=== PATIENT | male | born 1945 | race Caucasian/White ===

== ENCOUNTER → 2017-11-17 18:11 | Outpatient (CLI) | payer MEDICARE | END | disposition home or self-care (01) | LOC: D.LABREF 18:11 | DX: M17.12 Unilateral primary osteoarthritis, left knee (principal); Z11.8 Encounter for screening for other infectious and parasitic diseases ==

== ENCOUNTER 2018-01-05 10:00 | Inpatient (IN) | payer MEDICARE, BC ==
[~2018-01-05] VITALS: Ht 167.6 cm; Wt 102.5 kg
--- NOTE | ~2018-01-05 | OP ---
PATIENT NAME: FROY KOCH MEDICAL RECORD: [id number] :47 LOCATION:[id number] ADMISSION DATE:01/10/18 SURGEON: IMER PACHECO MD DATE OF OPERATION: 01/10/2018 PREOPERATIVE DIAGNOSIS: Painful hemiarthroplasty, left knee. POSTOPERATIVE DIAGNOSIS: Painful hemiarthroplasty, left knee. PROCEDURE: Revision left total knee arthroplasty. SURGEON: Imer Pacheco MD ANESTHESIA: General. INTRAOPERATIVE COMPLICATIONS: None. SUMMARY OF PATHOLOGIC FINDINGS: The patient had a very severe synovitis pigmented. This will be sent for specimen, although it does not look like a true pigmented nodular synovitis. At any rate, the inside of the knee was very irritated and the patient had developed lateral compartment arthritis as well. IMPLANTS USED: Alderson triathlon total knee arthroplasty, size 6 distal femur, size 16 polyethylene insert, size 5 tibial baseplate, and size 33 patellar component, all cemented. OPERATIVE SUMMARY IN DETAIL: After obtaining the appropriate preoperative orthopedic surgery consent as well as anesthetic consultation, evaluation, and clearance, the patient was brought to the operating room and placed on the operating table in supine position. After general laryngeal mask airway was administered, tourniquet was placed on the proximal aspect of the left lower extremity. Left lower extremity was then prepped and draped in routine sterile fashion. The leg was elevated and exsanguinated. Tourniquet was inflated to 350 mmHg. Previously utilized incision was taken down through the midline approach for paramedian arthrotomy. The patella was eventually everted and distal femur and the medial components were exposed. The polyethylene spacer was taken out. This was followed by flexible osteotomes chiselling underneath the distal femoral component, which was removed with absolutely no bone loss. Distal intramedullary guide hole was created for distal intramedullary guided cuts, intramedullary distal cut was made and attention was turned to the tibia. Tibia was exposed in its entirety. Intramedullary guide hole was created. The first cut was made while leaving the hemiarthroplasty baseplate in place. Given to the relatively light amount of bone loss, I did not feel like it needed to have a medial augmentation. Secondary cut was made just underneath the tibial component on the medial side. Having completed this, final measurements were taken. Chamfer cuts were made on the distal femur. Trials were put into place, taken through range of motion and found to be stable in all planes. Having completed this, trials were removed. Final distal femoral and proximal tibial preparations were made. This was followed by excision of the arthritic surface of the patella for a size 33 Endobutton. Final patellar preparations were then followed by complete irrigation of the knee cavity. The knee cavity was irrigated. Bone ends were dried. Final components were cemented into place. All excess cement was removed before the cement was allowed to harden. After the cement was allowed to harden, the knee was taken through range of motion and found to be stable in all planes with good patellar tracking. Paramedian OPERATIVE REPORT [id number] FROY KOCH arthrotomy was closed with #2 Ethibond followed by #1 Vicryl, 2-0 Vicryl and skin gino. Sterile dressings were applied. The patient was awakened and taken to recovery room in stable condition. All final needle and sponge counts were correct. TRANSINT:[id number] Voice Confirmation ID: [id number] DOCUMENT ID: [id number] JUNIOR REHMAN, IMER MCGUIRE at 1606 CC: [id number] DICTATION DATE: 01/10/18 1010 TELEMARKETING MANAGER: 01/10/18 1053 [facility] [address] [place] [address]
[2018-01-05] MEDS ORDERED: COREG12.5 MG PO (10:33)
[2018-01-05] MEDS ORDERED: LOTREL 10-40 M1 EACH PO (10:35)
[2018-01-05] MEDS ORDERED: PROZAC20 MG PO (10:35)
[2018-01-05] MEDS ORDERED: ZOCOR20 MG PO (10:36)
[2018-01-05 11:29] LABS: BASOPHILS 0.3 % (0-2); HEMATOCRIT 42.2 % (42.0-54.0); HEMOGLOBIN 14.7 g/dL (13.5-17.5); LYMPHOCYTES 20.7 % (15-50); MCH 32.5 pg (26.0-34.0); MCHC 34.8 g/dL (31.0-37.0); MCV 93.2 fL (80.0-100.0); MEAN PLATELET VOLUME 9.5 fL (7.4-10.4); MONOCYTES 7.3 % (2-11); NEUTROPHILS 68.7 % (40-80); PLATELET COUNT 250 10x3/uL (130-400); RBC 4.53 10x6/uL (4.20-6.10); RDW 12.2 % (11.5-14.5); WBC 6.3 10x3/uL (4.8-10.8)
[2018-01-05 11:45] LABS: APTT 29.4 SECONDS (22.8-39.4); INR 1.02 (0.85-1.17)
[2018-01-05 11:53] LABS: CALC OSMOLALITY 278 mosm/kg (275-300); CALCIUM 8.9 mg/dL (8.5-10.1); CHLORIDE - SERUM 103 mmol/L (98-107); CREATININE - SERUM 0.8 mg/dL (0.6-1.3); GLUCOSE 98 mg/dL (74-106); POTASSIUM - SERUM 4.7 mmol/L (3.5-5.1); SODIUM 138 mmol/L (136-145); UREA NITROGEN 20 mg/dL (7-18); eGFR NON AFRICAN AMERICAN > 90 mL/min (90-120)
[2018-01-05 12:02] LABS: APPEARANCE CLEAR (CLEAR); BILIRUBIN NEGATIVE (NEGATIVE); COLOR YELLOW (YELLOW); GLUCOSE NEGATIVE (NEGATIVE); KETONE NEGATIVE (NEGATIVE); NITRITE NEGATIVE (NEGATIVE); PROTEIN NEGATIVE (NEGATIVE); SPECIFIC GRAVITY 1.005 (1.005-1.020); UROBILINOGEN NORMAL (NORMAL)
[2018-01-10 07:16] VITALS: BP 128/75; BMI 36.8
[2018-01-10 12:16] VITALS: BP 148/87; BMI 36.5
[2018-01-10 16:41] VITALS: BP 112/64; BP 116/67
[2018-01-10 21:09] VITALS: BP 115/58
[2018-01-11 00:10] VITALS: BP 139/58
[2018-01-11 05:43] LABS: HEMATOCRIT 38.3 % (42.0-54.0); HEMOGLOBIN 12.8 g/dL (13.5-17.5); MCH 31.6 pg (26.0-34.0); MCHC 33.4 g/dL (31.0-37.0); MCV 94.6 fL (80.0-100.0); MEAN PLATELET VOLUME 9.6 fL (7.4-10.4); RBC 4.05 10x6/uL (4.20-6.10); RDW 12.3 % (11.5-14.5); WBC 9.8 10x3/uL (4.8-10.8)
[2018-01-11 08:25] VITALS: BP 188/71
[2018-01-11 11:57] VITALS: BP 126/61
[2018-01-11 12:44] VITALS: Ht 167.6 cm; Wt 102.5 kg
[2018-01-11 16:27] VITALS: BP 124/64
[2018-01-11 22:40] VITALS: BP 135/56
[2018-01-12 04:42] VITALS: BP 127/57
[2018-01-12 05:43] LABS: HEMATOCRIT 34.8 % (42.0-54.0); HEMOGLOBIN 12.1 g/dL (13.5-17.5); MCH 32.5 pg (26.0-34.0); MCHC 34.8 g/dL (31.0-37.0); MCV 93.5 fL (80.0-100.0); MEAN PLATELET VOLUME 10.2 fL (7.4-10.4); RBC 3.72 10x6/uL (4.20-6.10); RDW 12.6 % (11.5-14.5); WBC 11.2 10x3/uL (4.8-10.8)
[2018-01-12 08:00] VITALS: BP 123/67
[2018-01-12] MEDS ORDERED: ELIQUIS2.5 MG PO (08:31)
[2018-01-12] MEDS ORDERED: PERCOCET 10/3251 TA1 PO (08:31)
[2018-01-12 11:39] VITALS: BP 107/52
== END 2018-01-12 13:59 | disposition home or self-care (01) | DRG 468 ==
LOC: D.SDCHOLD 10:00 → D.MS 01-10 06:10 → D.SDCHOLD 01-10 08:15 → D.MS 01-10 11:03
PROVIDERS: Anesthesiology; Orthopaedic Surgery
PROC: 0SRD0J9 Replacement of Left Knee Joint with Synthetic Substitute, Cemented, Open Approach (ICD-10-PCS; 2018-01-10)
PROC: 0SPD0JZ Removal of Synthetic Substitute from Left Knee Joint, Open Approach (ICD-10-PCS; principal; 2018-01-10 08:15)
DX: T84.84XA Pain due to internal orthopedic prosthetic devices, implants and grafts, initial encounter (principal); I10 Essential (primary) hypertension; K75.9 Inflammatory liver disease, unspecified

== ENCOUNTER → 2018-01-18 15:09 | Outpatient (CLI) | payer MEDICARE, BC ==
[2018-01-11 12:44] VITALS: BMI 36.4
[~2018-01-18 15:09] MED LIST: COREG12.5 MG PO; ELIQUIS2.5 MG PO; LOTREL 10-40 M1 EACH PO; PERCOCET 10/3251 TA1 PO; PROZAC20 MG PO; ZOCOR20 MG PO
== END | disposition home or self-care (01) ==
LOC: D.US 15:09
DX: R60.0 Localized edema (principal)